=== PATIENT | female | born 2000 | race African-American/Black ===

== ENCOUNTER 2021-03-14 19:21 | Emergency (ER) | payer OTHER ==
[~2021-03-14] VITALS: Ht 180.3 cm; Wt 81.7 kg
[2021-03-14 19:24] VITALS: BP 122/80
[2021-03-14] MEDS ORDERED: IBUPROFEN200 M1 PO (19:29)
[2021-03-14] MEDS ORDERED: PROAIR HFA8.5 GM INH (19:49)
[2021-03-14] MEDS ORDERED: TESSALON PERLE100 MG PO (19:49)
== END 2021-03-14 20:31 | disposition home or self-care (01) ==
LOC: ER 19:21
DX: O98.511 Other viral diseases complicating pregnancy, first trimester (principal); Z3A.08 8 weeks gestation of pregnancy; Z86.16 Personal history of COVID-19; Z79.899 Other long term (current) drug therapy